=== PATIENT | female | born 1960 | race American Indian/Alaskan Native ===

== ENCOUNTER 2019-05-29 20:13 | Emergency (ER) | payer SELFPAY ==
[2019-05-29 20:13] VITALS: BP 96/67; PULSE 97; RESP 18; TEMP 36.9; O2SAT 99
[2019-05-29] MEDS: ONDANSETRON 4 MG/2 ML INJ IV (20:23)
[2019-05-29] MEDS: SODIUM CHLORIDE 0.9% 1,000 ML 1000 ML IV (20:33)
--- NOTE | 2019-05-29 20:46 | ED_ITS ---
HPI - Nausea/Vomiting/Diarrhea General Chief complaint: Nausea/Vomiting/Diarrhea Stated complaint: sob, nausea/vomiting. Time Seen by Provider: 05/29/19 20:16 Source: patient and family Mode of arrival: ambulatory Limitations: no limitations History of Present Illness HPI Narrative: 59-year-old female nonsmoker with extensive medical history including chronic pain control presents with multiple family members in the chief complaint of persistent nausea vomiting and agitation. She was just discharged from [facility] earlier today after having been admitted for polysubstance, polypharmacy and dehydration. She went home and took her medications as prescribed and became somnolent and took Narcan 4 mg, soon thereafter she developed nausea, vomiting and restlessness. At this point time she was transported here by EMS. MD complaint: nausea and vomiting Onset (ago): minute(s) Description of Vomiting: food contents Description of Diarrhea: none Associated Abdominal Pain: Yes Location of pain: diffuse Severity: mild Relieving factors: none Exacerbating factors: none Related Data Home Medications Medication Instructions Recorded Confirmed cetirizine 10 mg PO DAILY 05/29/19 05/29/19 cholecalciferol (vitamin D3) 1,000 unit PO DAILY 05/29/19 05/29/19 cyanocobalamin (vitamin B-12) 1,000 mcg PO DAILY 05/29/19 05/29/19 fluticasone propion-salmeterol 1 inh INHALATION BID 05/29/19 05/29/19 folic acid 1 mg PO DAILY 05/29/19 05/29/19 gabapentin 400 mg PO BEDTIME 05/29/19 05/29/19 gabapentin 600 mg PO QAM 05/29/19 05/29/19 hydrochlorothiazide 12.5 mg PO DAILY 05/29/19 05/29/19 methotrexate sodium 7.5 mg PO QWEEK 05/29/19 05/29/19 morphine 10 mg PO Q12H 05/29/19 05/29/19 naloxone 1 spray INTRANASAL Q2M PRN 05/29/19 05/29/19 omeprazole 20 mg PO DAILY 05/29/19 05/29/19 sulfasalazine 500 mg PO QID 05/29/19 05/29/19 trazodone 100 mg PO DAILY 05/29/19 05/29/19 venlafaxine 150 mg PO DAILY 05/29/19 05/29/19 Allergies Allergy/AdvReac Type Severity Reaction Status Date / Time No Known Drug Allergies Allergy Verified 05/29/19 20:28 Review of Systems Review of Systems ROS Unobtainable: All systems reviewed & are unremarkable except as noted in HPI and below Constitutional Denies chills, Denies fever(s), Denies lethargy and Denies weakness Eyes Denies change in vision, Denies eye discharge, Denies irritation and Denies loss of vision ENT Ears, Nose, Mouth, and Throat: Denies change in voice, Denies neck pain and Den ies sore throat Cardiovascular Denies chest pain, Denies irregular heart rhythm, Denies lightheadedness, Denies palpitations, Denies dyspnea, Denies dyspnea on exertion and Denies orthopnea Respiratory Denies cough, Denies dyspnea, Denies dyspnea on exertion and Denies wheezing Gastrointestinal Gastrointestinal: Denies abdominal pain, Denies change in bowel habits, Denies diarrhea, Reports nausea and Reports vomiting Genitourinary Denies hematuria, Denies flank pain, Denies urinary incontinence and Denies urinary urgency Musculoskeletal Denies neck pain Integumentary/Breasts Denies pruritus, Denies erythema, Denies rash and Denies wounds Neurologic Denies confusion, Denies loss of vision and Denies weakness Psychiatric Reports anxiety, Denies confusion, Denies depression, Denies homicidal ideation and Denies suicidal ideation Endocrine Denies palpitations Hematologic/Lymphatic Denies easy bruising Allergic/Immunologic Denies wheezing PFSH Social History Smoking Status: Former smoker Social History Smoking Status: Former smoker Exam Narrative Exam Narrative: GENERAL: 59-year-old female appears older than stated age, obviously uncomfortable, agitated, anxious with an emesis bag in her hands HEAD: Atraumatic. Normocephalic. No temporal or scalp tenderness. EYES: Pupils equal round and reactive. Extraocular motions intact. No scleral icterus. No injection or drainage. ENT: Nose without bleeding, purulent drainage or septal hematoma. Throat without erythema, tonsillar hypertrophy or exudate. Uvula midline. Airway patent. NECK: Trachea midline. No JVD or lymphadenopathy. Supple, nontender, no meningeal signs. CARDIOVASCULAR: Regular rate and rhythm without murmurs, gallops, or rubs. RESPIRATORY: Clear to auscultation. Breath sounds equal bilaterally. No wheezes, rales, or rhonchi. GASTROINTESTINAL: Abdomen soft, non-tender, nondistended. No hepato- splenomegaly, or palpable masses. No guarding. EXTREMITIES: No clubbing, cyanosis, or edema. No joint tenderness, effusion, or edema noted. BACK: Nontender without deformity or crepitance. No flank tenderness. NEURO: AOx3. SKIN: No rash or erythema. Initial Vital Signs Initial Vital Signs: Vital Signs Temperature 98.4 F 05/29/19 20:13 Pulse Rate 97 H 05/29/19 20:13 Respiratory Rate 18 05/29/19 20:13 Blood Pressure 96/67 05/29/19 20:13 Pulse Oximetry 99 05/29/19 20:13 Course Course Narrative: Patient observed for a few hours and returns to baseline rather quickly, she has no ongoing symptoms, no somnolence or respiratory difficulties. In the end she tells me that she had change the dosing regimen of her morphine and instead of taking it twice daily she decided to take both pills together as she feels like her nighttime pill keeps her up on occasion. We discussed that she clearly cannot tolerate taking both of them that the same time. She is given return precautions and has had her questions answered to her apparent satisfaction Orders Ordered: ED Orders 05/29/19 20:24 Basic Metabolic Panel Stat Complete Blood Count AUTO DIFF Stat 05/29/19 20:29 EKG-12 Lead Stat 05/29/19 21:00 Urine Drug Screen, Rapid Stat Discontinued Medications Sodium Chloride (Normal Saline 0.9%) 1,000 mls @ 1,000 mls/hr IV BOLUS ONE Stop: 05/29/19 21:18 Last Infusion: 05/29/19 21:37 Dose: 0 mls/hr Admin: 05/29/19 20:33 Dose: 1,000 mls/hr Lorazepam (Ativan) 1 mg IV NOW ONE Stop: 05/29/19 20:55 Last Admin: 05/29/19 21:22 Dose: 1 mg Ondansetron HCl (Zofran) 4 mg IV Q4HR PRN PRN Reason: Nausea And Vomiting Last Admin: 05/29/19 20:23 Dose: 4 mg Vital Signs - 8 hr 05/29/19 20:13 05/29/19 23:20 Temperature 98.4 F 97.8 F Pulse Rate 97 H 79 Respiratory Rate 18 16 Blood Pressure 96/67 130/78 Pulse Oximetry 99 98 MDM - Nausea/Vomiting/Diarrhea Lab Data Result diagrams: 05/29/19 20:24 05/29/19 20:24 Lab Results 05/29/19 05/29/19 05/29/19 Range/Units 20:24 20:24 21:00 WBC 6.0 (4.5-11.0) X10^3/uL RBC 4.15 (4.0-5.2) X10^6/uL Hgb 13.2 (12.0-16.0) g/dL Hct 39.6 (36-46) % MCV 95.3 (80-100) fL MCH 31.7 (26-34) PG MCHC 33.2 (30-36) % RDW 17.0 H (11.6-14.8) % Plt Count 377 (150-400) X10^3/uL Neut % (Auto) 76.8 H (50-75) % Lymph % (Auto) 14.5 L (25-40) % [place] % (Auto) 7.2 (3-14) % Eos % (Auto) 0.1 L (2-4) % Baso % (Auto) 1.4 (0-2) % Neut # (Auto) 4600 (5145-4359) /uL Lymph # (Auto) 900 L (6048-9880) /uL [place] # (Auto) 400 (0-900) /uL Eos # (Auto) 0 (0-450) /uL Baso # (Auto) 100 (0-100) /uL Sodium 140 (137-145) mmol/L Potassium TNP Chloride 101 (98-107) mmol/L Carbon Dioxide 27 (22-32) mmol/L BUN 8 (7-17) mg/dL Creatinine 0.60 (0.52-1.04) mg/dL Estimated GFR > 60.0 (>60) mL/min BUN/Creatinine Ratio 13.3 (6-22) Glucose 110 (80-110) mg/dL Calcium 9.6 (8.4-10.2) mg/dL Urine Opiates Screen Positive H (Negative) Ur Oxycodone Screen Negative (Negative) Urine Methadone Screen Negative (Negative) Ur Barbiturates Screen Negative (Negative) U Tricyclic Antidepress Negative (Negative) Ur Phencyclidine Scrn Negative (Negative) Ur Amphetamines Screen Negative (Negative) U Methamphetamines Scrn Negative (Negative) Ur MDMA Scrn (Ecstasy) Negative (Negative) U Benzodiazepines Scrn Negative (Negative) Urine Cocaine Screen Negative (Negative) U Marijuana (THC) Screen Negative (Negative) Discharge Plan Departure Patient Disposition: Home Clinical Impression: Accidental overdose Qualifiers: Encounter type: initial encounter Qualified Code(s): T50.901A - Poisoning by unspecified drugs, medicaments and biological substances, accidental (unintentional), initial encounter Discharge Date/Time: 05/29/19 23:22 Interventions: ED Discharge Assessment Last Done: 05/29/19 23:20 Instructions: DI for Drug Overdose in Adults Activity Restrictions/Additional Instructions: *You have been diagnosed with [accidental opioid overdose] *What to do: * please resume twice a day dosing on your morphine. When you take both pills together it seems to be too much for you. Please take 1 in the morning and 1 at night *Follow up with your primary care provider in 2-3 days, call for an appointment. Let them know you were seen in the Emergency Department and that we ask that you be seen in follow up *Return to ER if you should have any new, worsening or concerning symptoms Prescriptions: No Action gabapentin 600 mg Tablet 600 mg PO QAM RF: 0 sulfasalazine 500 mg Tablet 500 mg PO QID RF: 0 gabapentin 400 mg Capsule 400 mg PO BEDTIME RF: 0 venlafaxine 150 mg Capsule,Extended Release 24hr 150 mg PO DAILY RF: 0 trazodone 100 mg Tablet 100 mg PO DAILY RF: 0 methotrexate sodium 7.5 mg Tablet 7.5 mg PO QWEEK RF: 0 fluticasone propion-salmeterol 500-50 mcg/dose Blister With Device 1 inh INHALATION BID RF: 0 hydrochlorothiazide 12.5 mg Capsule 12.5 mg PO DAILY RF: 0 omeprazole 20 mg Capsule,Delayed Release(Dr/Ec) 20 mg PO DAILY RF: 0 folic acid 1 mg Tablet 1 mg PO DAILY RF: 0 cholecalciferol (vitamin D3) 1,000 unit Capsule 1,000 unit PO DAILY RF: 0 morphine 10 mg Capsule,Extend.Release Pellets 10 mg PO Q12H RF: 0 cetirizine 10 mg Capsule 10 mg PO DAILY RF: 0 naloxone 4 mg/actuation [place],Non-Aerosol 1 spray INTRANASAL Q2M PRN (Reason: apnea) RF: 0 cyanocobalamin (vitamin B-12) 1,000 mcg Capsule 1,000 mcg PO DAILY RF: 0
[2019-05-29 20:47] LABS: Add Manual Diff / Slide Review NO; Basophils Absolute Auto 100 /uL (0-100); Basophils Percent Auto 1.4 % (0-2); Eosinophils Absolute Auto 0 /uL (0-450); Eosinophils Percent Auto 0.1 % (2-4); Hematocrit 39.6 % (36-46); Hemoglobin 13.2 g/dL (12.0-16.0); Lymphocytes Absolute Auto 900 /uL (1100-4500); Lymphocytes Percent Auto 14.5 % (25-40); Mean Corpuscular HGB Conc 33.2 % (30-36); Mean Corpuscular Hemoglobin 31.7 PG (26-34); Mean Corpuscular Volume 95.3 fL (80-100); Monocytes Absolute Auto 400 /uL (0-900); Monocytes Percent Auto 7.2 % (3-14); Neutrophils Absolute Auto 4600 /uL (1500-7000); Neutrophils Percent Auto 76.8 % (50-75); Platelet Count 377 X10^3/uL (150-400); Red Blood Cell Count 4.15 X10^6/uL (4.0-5.2)
[2019-05-29 20:59] LABS: BUN Creatinine Ratio 13.3 (6-22); Blood Urea Nitrogen 8 mg/dL (7-17); Calcium 9.6 mg/dL (8.4-10.2); Carbon Dioxide 27 mmol/L (22-32); Chloride 101 mmol/L (98-107); Estimated Glomerular Filt Rate > 60.0 mL/min (>60); Glucose 110 mg/dL (80-110); Sodium 140 mmol/L (137-145)
[2019-05-29 21:00] LABS: HEMOLYSIS 112 (0-50)
[2019-05-29] MEDS: LORazepam 2 MG/ML INJ 1 MG IV (21:22)
[2019-05-29 21:23] LABS: Urine Amphetamines Negative (Negative); Urine Barbiturates Negative (Negative); Urine Benzodiazepines Negative (Negative); Urine Cocaine Negative (Negative); Urine MDMA Negative (Negative); Urine Methadone Negative (Negative); Urine Methamphetamines Negative (Negative); Urine Morphine/Opi cutoff 2000 Positive (Negative); Urine Oxycodone Negative (Negative); Urine Phencyclidine Negative (Negative); Urine Tetrahydrocannabinol Negative (Negative); Urine Tricyclic Antidepressant Negative (Negative)
[2019-05-29 23:20] VITALS: BP 130/78; PULSE 79; RESP 16; TEMP 36.6; O2SAT 98
== END 2019-05-29 23:22 | disposition home or self-care (01) ==
PROVIDERS: Emergency Provider Emergency Medicine
DX: T50.901A Poisoning by unspecified drugs, medicaments and biological substances, accidental (unintentional), initial encounter (principal); R06.02 Shortness of breath
CPT/HCPCS: 36591; 80048; 80305; 85025; 93005; 96361; 96374; 96375; 99283; 99284; J2060; J2405